=== PATIENT | female | born 1965 | race Caucasian/White ===

== ENCOUNTER 2016-05-26 10:25 | Observation (INO) | payer OTHER ==
--- NOTE | 2016-05-21 09:27 | PREOPHP ---
DATE OF ADMISSION: 05/26/2016 Patient to have surgery with Dr. Javi Lares, 05/26/2016, at [facility]. REQUESTING PHYSICIAN: Dr. Javi Lares for medical evaluation and clearance of a 50-year-old woman a bout to undergo surgery on her left foot. Thank you, Dr. Lares, for allowing us to participate in the care of this patient. HISTORY OF PRESENT ILLNESS: Lindsey Solorio, a 50-year-old woman, problems with her left foot. Inju red it and fractured it at work and it is currently giving her problems with issues of nonunion and arthritic problems. Is currently being admitted for correction of the above problem. PAST SURGICAL HISTORY: She had open cholecystectomy done in the past, right shoulder arthroscopical ly, had a tubal ligation surgery and had a variety of different cosmetic surgeries particularly in h er abdomen. She fractured her left foot, as mentioned above. Her tubal ligation was done laparosco pic. HOSPITALIZATIONS: She has had no medical hospitalizations. OBSTETRIC HISTORY: Has had pregnancies and vaginal deliveries. Other than that, she has been relatively well, having a work injury in terms of the fractured left f oot. MEDICATIONS: None. ALLERGIES: NONE. GENERAL HEALTH: Good. SOCIAL HISTORY: The patient is , has 3 children and 1 grandchild. She does not smoke or dri nk alcoholic beverages. Does drink coffee. Works as a [employer] and usually has no difficulty sleeping a t night. FAMILY HISTORY: Both parents are alive. Father is 78. Mother is 73. Father has some mild hyperte nsion. Two sisters are in good health. There is a family history of hypertension and stroke; no di abetes or cancer. REVIEW OF SYSTEMS HEENT: Does get periodic migraine headaches. CARDIORESPIRATORY: Denies any chest pain or shortness of breath. GASTROINTESTINAL: No melena or hematemesis. GENITOURINARY: No urgency, frequency. GYNECOLOGIC: Still has regular menses, is up to date with her doctor. MUSCULOSKELETAL: Positive f or left foot pain. NEUROPSYCHIATRIC: Unremarkable. GENERAL HEALTH: As above. PHYSICAL EXAMINATION VITAL SIGNS: The patient's blood pressure was 109/78, pulse was 76 and regular, respirations were 1 8, temperature 98.4, weight 156 pounds, height 63 inches. GENERAL: The patient was noted to be a well-developed, well-nourished female, alert and cooperative , in no apparent acute distress, oriented to time, place and person. HEAD, EARS, EYES, NOSE AND THROAT: Head was atraumatic. The eyes, pupils were equal, reactive to l ight and accommodation. Fundi were benign. Tympanic membranes were unremarkable. Nose was negativ e. Mouth was unremarkable. Fair oral hygiene was present. NECK: Supple, without any rigidity. Trachea was midline. Thyroid was unremarkable. Neck veins we re flat. Carotid pulses were equal. BACK: Unremarkable. CHEST: Symmetrical. BREASTS AND AXILLARY: Did not reveal any masses. LUNGS: Clear to percussion and auscultation. HEART: PMI is 5th intercostal space at the midclavicular line. A regular sinus rhythm was noted. No significant murmurs, rubs, or gallops being elicited. ABDOMEN: Soft, good bowel sounds were noted. No significant organomegaly, masses, or tenderness be ing noted. Scar from prior surgery was noted. GENITALIA: Normal female external genitalia. PELVIRECTAL: Per business consult, up to date. EXTREMITIES: Did not reveal any clubbing, edema or cyanosis. Peripheral pulses were physiologic. SKIN: Moist and warm without any eruptions. No gross lymphadenopathy was noted. NEUROLOGIC: Grossly intact. IMPRESSION 1. Pain, left foot, secondary to subluxation of tarsometatarsal joint in the left foot. 2. Stable health. DATABASE: Review of laboratory and other data revealed the following: The patient's chemistry pane l revealed normal electrolytes, glucose, BUN, creatinine, a uric acid was normal, calcium was a bit the lower side. Liver function tests, magnesium and test were normal. CBC, UA, PT and PT T were normal. The patient's EKG revealed some nonspecific ST-T wave changes; no acute changes bein g noted, and the patient's chest x-ray was within normal limits. DISCUSSION: Dr. Lares, I see no contraindication in this patient undergoing current proposed surge ry under the desired form of anesthesia, and I feel she is a suitable candidate at this particular p oint in time. Should any medical problems arise during her stay at [facility], I will be m ore than happy to follow her up with you. Thank you again, Dr. Lares, for allowing us to participate in the care of this patient. Dictated By: DAMARIS TURCIOS MD SS/NTS Conf#: [id number] DID#: [id number] CC: JAVI LARES MD;*EndCC*
[~2016-05-26] VITALS: Ht 157.5 cm; Wt 70.3 kg
[2016-05-26] VITALS (20 sets, daily range): BP systolic 109–140; BP diastolic 61–78; PULSE 72–104; RESP 13–36; Ht 157.5 cm; Wt 70.3 kg
[~2016-05-26 10:25] MED LIST: FENTAnyl 50 MCG/ML VIAL ONE; GLYCOPYRROLATE 0.4 MG INJ ONE; KETOROLAC 30 MG INJ ONE; LIDOCAINE 2% (SDV) 5 ML INJ ONE; LIDOCAINE 2%/EPI 30 ML INJ ONE; MIDAZOLAM 1 MG/ML 2 ML INJ ONE; NEOSTIGMINE 3 MG/3 ML SYRINGE ONE; PROPOFOL 20 ML ONE; ROCURONIUM 50 MG INJ ONE; ROPIVACAINE 0.5 % 30 ML VIAL ONE
[2016-05-26] MEDS ORDERED: ROPIVACAINE 0.5 % 30 ML VIAL ONE (12:05)
[2016-05-26] MEDS ORDERED: POVIDONE IODINE 10% 28.4 GM OINT ONE (12:05)
[2016-05-26] MEDS ORDERED: POLYMYXIN/BACITRACIN 1L IRRIG ONE (12:06)
[2016-05-26] MEDS ORDERED: ONDANSETRON 4 MG INJ ONE ×2 (12:44→18:23)
[2016-05-26] MEDS ORDERED: DEXAMETHASONE 4 MG/ML 1 ML INJ ONE (12:44)
--- NOTE | 2016-05-26 12:46 | HPN ---
Date/Time of Note Date/Time of Note DATE: 05/26/16 TIME: 12:45 Interval H&P Admission Note Pt. seen H&P reviewed: No system changes CHRIS LARES MD May 26, 2016 12:46
[2016-05-26] MEDS ORDERED: HEPARIN 1000 UNITS/ML 10 ML INJ ONE (13:22)
[2016-05-26] MEDS ORDERED: THROMBIN 5000 UNIT VIAL ONE (14:42)
[2016-05-26] MEDS ORDERED: CA CHLORIDE 10% 10 ML SYRINGE ONE (14:42)
[2016-05-26] MEDS ORDERED: LIDOCAINE 4% CR ONE (16:07)
[2016-05-26] MEDS ORDERED: LABETALOL HCL 20MG INJ ONE (16:17)
[2016-05-26] MEDS ORDERED: CEFAZOLIN 1 GM INJ ONE (17:06)
[2016-05-26] MEDS ORDERED: NEOMYC/POLYMYX/BACIT 30 GM OINT ONE (17:29)
--- NOTE | 2016-05-26 18:23 | RADRPT ---
PROCEDURE: Intraoperative imaging of the left foot with fluoroscopy. CLINICAL INDICATION: Left foot pain. Intraoperative. TECHNIQUE: 18 images of the left foot were obtained in the operating room with an image intensifie r. No radiologist was in attendance. 0.1 minutes of fluoroscopy time was used. COMPARISON: No prior study is available for comparison. FINDINGS: Images demonstrate surgical instruments overlying the left foot and arthrodesis of the first and sec ond tarsometatarsal joints with plates and screws. IMPRESSION: 1. Intraoperative imaging of the left foot. RPTAT: QQ .Alvaro Rodríguez MD, Date Time Electronically viewed and signed by .Alvaro Rodríguez MD, on 05/26/2016 18:23 .R/
--- NOTE | 2016-05-26 18:27 | OPR ---
Date/Time of Note Date/Time of Note DATE: 05/26/16 TIME: 18:21 Operative Report Procedure Date: May 26, 2016 Preoperative Diagnosis Left foot status post Lisfranc injury now with first second third and fourth tarsometatarsal joint osteoarthritis Postoperative Diagnosis 1. Left foot status post Lisfranc injury tarsometatarsal joint dislocation with first, second, third and fourth tarsometatarsal joint osteoarthritis Operation Performed Left foot first, second and third tarsometatarsal joint arthrodesis with iliac crest bone marrow autograft harvest mixed with bone marrow aspirate concentrate and allograft Surgeon: CHRIS LARES MD pediatric physician assistant: JOSE FORD Anesthesia: general, other (Regional block anesthesia) Anesthesiologist: RUSSELL BAIRD MD Tourniquet Time: 125 minutes at 250 mmHg Estimated Blood Loss: minimal Complications: None Pt Condition Post Procedure: stable Disposition: PACU CHRIS LARES MD May 26, 2016 18:26
[2016-05-26] MEDS ORDERED: MEPERIDINE 25 MG INJ IV PRN (18:30)
[2016-05-26] MEDS ORDERED: ATROPINE 1 MG/10 ML SYRINGE IV PRN (18:30)
[2016-05-26] MEDS ORDERED: hydrALAzine 20 MG INJ IV PRN (18:30)
[2016-05-26] MEDS ORDERED: ONDANSETRON 4 MG INJ IV PRN ×2 (18:30)
[2016-05-26] MEDS ORDERED: morphine 10 MG INJ IV PRN (18:30)
[2016-05-26] MEDS ORDERED: LABETALOL HCL 20MG INJ IV PRN (18:30)
[2016-05-26] MEDS ORDERED: OXYCODONE/ACETAMINOPHEN (5/325) TAB PO PRN ×3 (18:30)
[2016-05-26] MEDS ORDERED: HYDROmorphONE (0.2 MG/ML) 10ML SYG IV PRN ×3 (18:30)
[2016-05-26] MEDS ORDERED: CEFAZOLIN 1 GM INJ IV SCH (18:30)
[2016-05-26] MEDS ORDERED: morphine (1 MG/ML) 10ML SYRINGE IV PRN ×3 (18:30)
[2016-05-26] MEDS ORDERED: EPHEDrine SULFATE 50 MG/5 ML SYG IV PRN (18:30)
[2016-05-26] MEDS ORDERED: DIPHENHYDRAMINE 50 MG INJ IV PRN (18:30)
[2016-05-26] MEDS ORDERED: FENTAnyl 50 MCG/ML VIAL IV PRN ×2 (18:30)
[2016-05-26] MEDS ORDERED: MIDAZOLAM 1 MG/ML 2 ML INJ IV PRN (18:30)
[2016-05-26] MEDS ORDERED: DIPHENHYDRAMINE 25 MG CAP PO PRN ×2 (18:30→19:00)
[2016-05-26] MEDS ORDERED: morphine 1 MG/ML 30 ML (PCA) IV SCH (18:30)
[2016-05-26] MEDS: OXYCODONE/ACETAMINOPHEN (5/325) TAB PO PRN (20:23)
[2016-05-27] MEDS: CEFAZOLIN 1 GM/50 ML (PMX) 50 ML IVPB SCH ×3 (01:49→17:22)
[2016-05-27] MEDS ORDERED: DIPHENHYDRAMINE 25 MG CAP PO PRN (02:00)
[2016-05-27 06:44] VITALS: BP 112/77; PULSE 67; RESP 18
[2016-05-27 08:53] VITALS: BP 114/65; RESP 18
--- NOTE | 2016-05-27 11:16 | CONS ---
DATE OF ADMISSION: 05/26/2016 DATE OF CONSULTATION: 05/27/2016 HISTORY OF PRESENT ILLNESS: The patient had surgery on her left foot. It is bandaged and casted an d elevated. Apparently, a Villarreal catheter had to be reinserted because of the patient's inability to urinate. The patient has had no prior history of significant urinary tract issues. VITAL SIGNS: The patient's vital signs revealed the following: Blood pressure was 114/85, pulse wa s 67, respirations 18, temperature 98.7, O2 saturation 96% on room air. HEENT: Unremarkable. LUNGS: Clear. HEART: Reveals a regular rhythm. Villarreal in place. Left lower extremity elevated. IMPRESSION 1. Status post left foot and ankle surgery. 2. Urinary retention, etiology unknown. 3. Stable health. DISCUSSION: At this point, no lab is pending. Should the catheter be difficult remove, suggest a u rine culture and urecholine or other appropriate measures for bladder emptying. Otherwise, the robbie ent was quite stable and management by Dr. Javi Penaloza MD Thank you again, Dr. Penaloza, for allowing us to participate in the care of this patient. Dictated By: DAMARIS URIAS/ERIKA Conf#: [id number] DID#: [id number]
[2016-05-27] MEDS: OXYCODONE/ACETAMINOPHEN (5/325) TAB PO PRN ×2 (13:04→17:21)
[2016-05-27] MEDS ORDERED: INFLUENZA VIRUS VACCINE 0.5 ML SYG IM* ONE (16:00)
[2016-05-27] MEDS ORDERED: RIVAROXABAN 10 MG TABLET PO SCH (17:55)
--- NOTE | 2016-05-27 18:16 | PN ---
Date/Time of Note Date/Time of Note DATE: 05/27/16 TIME: 18:16 Assessment/Plan Lines/Catheters IV Catheter Type (from Nrsg): Peripheral IV Villarreal in Place (from Nrsg): No Assessment/Plan Assessment/Plan Postoperative day #1 status post left first second, third tarsometatarsal joint arthrodesis with iliac crest autograft and allograft as well as bone marrow aspirate concentrate -Nonweightbearing to the left lower extremity -P.o. pain control -Xarelto and SCDs for DVT prophylaxis -Discharge home today Javi Lares MD Subjective 24 Hr Interval Summary Pain is well controlled and patient able to urinate freely. She denies any fevers chills nausea or vomiting Constitutional: ambulates, flatus, improved, no complaints, urine output Feeding: advancing diet Pain Control: well controlled Exam/Review of Systems Vital Signs Vitals Vital Signs Date Time Temp Pulse Resp B/P Pulse Ox O2 Delivery O2 Flow Rate FiO2 05/27/16 08:53 98.1 80 18 114/65 99 05/27/16 06:44 Room Air Intake and Output 05/26/16 05/26/16 05/27/16 15:00 23:00 07:00 Intake Total 600 ml Output Total 100 ml 800 ml Balance -100 ml -200 ml Exam Constitutional: alert, oriented, well developed Musculoskeletal: other (Left lower extremity-splint intact. Toes wiggle, sensation intact light touch to the medial, lateral, dorsal, plantar, first dorsal webspace distribution. Capillary refill brisk and toes are warm and well perfused) JAVI LARES MD May 27, 2016 18:16
--- NOTE | 2016-05-27 18:16 | DS ---
Date/Time of Note Date/Time of Note DATE: 05/27/16 TIME: 18:16 Discharge Summary Admission/Discharge Info Admit Date/Time May 26, 2016 at 18:29 Discharge Date/Time 05/27/16 Final Diagnosis Left midfoot OA Patient Condition: Good Procedures Left TMTJ Arthrodesis Hospital Course Patient was admitted post op for pain control and urinary retention. She was straight cath'd twice and pain is now better controlled. She is NVI to the operative extremity Home Meds No Active Prescriptions or Reported Meds Follow-up Plan with me in [facility] in 1 week CHRIS LARES MD May 27, 2016 18:16
--- NOTE | 2016-05-27 18:18 | PDOCDIS ---
Discharge Instructions DIAGNOSIS Discharge Diagnosis: left midfoot arthritis CONDITION Patient Condition: Good HOME CARE INSTRUCTIONS: Diet Instructions: Regular ACTIVITY: Activity Restrictions: Do not Drive Keep Limb Elevated No Weight Bearing SCHOOL/WORK RELEASE May return to School/Work with: With Restrictions CHRIS LARES MD May 27, 2016 18:18
--- NOTE | 2016-05-31 14:03 | OPR ---
DATE OF OPERATION: 05/26/2016 SURGEON: Javi Penaloza MD OLIVE GRADER: Summer TUCKER PREOPERATIVE DIAGNOSES: 1. Left foot osteoarthritis of the first, second, third and fourth tarsometatarsal joint secondary to a previous Lisfranc injury. 2. Left foot osteoarthritis first, second, third and fourth tarsometatarsal joint secondary to a previous Lisfranc tarsometatarsal joint injury. POSTOPERATIVE DIAGNOSES: 1. Left foot osteoarthritis of the first, second, third and fourth tarsometatarsal joint secondary to a previous Lisfranc injury. 2. Left foot osteoarthritis first, second, third and fourth tarsometatarsal joint secondary to a previous Lisfranc tarsometatarsal joint injury and fracture of the base of the fourth metatarsal OPERATION PERFORMED: Left foot first, second and third tarsometatarsal joint arthrodesis with iliac crest bone autograft harvest, mixed with bone marrow aspirate concentrate and allograft. ANESTHESIA: General with regional block. ANESTHESIOLOGIST: Bienvenido Stoll MD TOURNIQUET TIME: 125 minutes at 250 mmHg ESTIMATED BLOOD LOSS: Minimal. COMPLICATIONS: None. INDICATIONS: The patient is a female who sustained an injury Lisfranc first and second tarsometatarsal joint dislocation, Lisfranc injury as well as fourth and third metatarsal joint injuries. X-ray and CT scan showed malalignment of the first metatarsal on the cuneiform as well as posttraumatic osteoarthritis of the second third and fourth tarsometatarsal joint. Patient continued to have extensive pain at these joints and was indicated for midfoot arthrodesis at this point. Procedure: Patient was met in the preoperative holding area and her operative extremity was both marked and confirmed with both patient and consent. Patient was then brought back to the operative theater placed supine on the operative table and given regional block anesthesia and antibiotics. Patient was then prepped and draped in the normal sterile fashion and a timeout was taken. All parties in the room agreed is a correct patient, extremity and correct procedure. Initially attention was turned to the left iliac crest where a small incision was made just proximal to the ASIS. Iliac crest bone was harvested using an [employer] bone harvesting reamer. Bone marrow aspirate concentrate was also removed from this area at this time and sent off for centrifuge. The wound was irrigated thoroughly and closed with 3-0 Monocryl followed by 4-0 Monocryl and Steri-Strips. Attention was then turned to the left lower extremity. Tourniquet was brought up to 250 mmHg. Incision was made over the first and second metatarsal and incision was brought down deep to the extensor hallucis brevis and the neurovascular bundle was identified and protected and retracted. The first tarsometatarsal joint was exposed and prepared removing all cartilage on both sides of the joint and the subchondral bone was curetted and penetrated with a drill to promote fusion scar tissue was removed between the base of the second metatarsal and first cuneiform to allow for reduction of the second metatarsal base. Once the joint was adequately debrided the first metatarsal base was then pinned to the first cuneiform while providing provisional fixation. The deformity was reduced with the ankle in dorsiflexion and the toes in dorsiflexion to promote proper alignment. The second metatarsal was then debrided in the similar fashion and the subchondral bone on both the cuneiform and the metatarsal were adequately debrided and using a drill to promote subchondral penetration. A another guidepin was then placed all fixation of the middle column with again the ankles and toes in dorsiflexion. the first plate was then sized and then attention was then turned to the Lisfranc screw placement. A Lisfranc screw was placed from the first cuneiform to the base of the second metatarsal in order to stabilize the base of the second metatarsal. Then turned to placement of the dorsal compression plate and the first and second tarsometatarsal joint dorsal compression plates were then applied after iliac crest bone autograft and bone marrow aspirate concentrate had been mixed with AlloMatrix and augment. The allograft and autograft mixture was then placed into the first and second tarsometatarsal joint and the dorsal compression plates were then applied. The plates had been precontoured to prevent dorsiflexion. And locking screws and compression screws were placed into the plate. Fluoroscopic guidance confirmed on the AP oblique and lateral view that the plates were placed in the excellent position and the joints were well aligned. Incision was then made over the third and fourth tarsometatarsal joint and brought down to the third TMT joint. The joint was then debrided and prepared in a similar fashion as previously mentioned with subchondral bone be penetrated in the cartilage removed. And then using a [employer] staple the joints were then held in position and compressed in the typical fashion with the autograft and allograft mixture placed into the third TMT joint prior to staple compression. The fourth TMT joint had a sense of scar tissue debrided around the joint as well in order to achieve better pain control after surgery and remove any sort of pain generators. All wounds were irrigated thoroughly and closed in layers with 3-0 Monocryl followed by 4-0 nylon in vertical mattress fashion. All wounds were dressed with Xeroform Betadine ointment 4 x 4's several ABDs and placed in a well-padded short leg cast. All sponge needle counts were correct and the patient was brought to the PACU in stable condition. Dictated By: JAVI LAIRD/NTS Conf#: [id number] DID#: [id number] MTDD
== END 2016-05-27 21:00 | disposition home or self-care (01) ==
LOC: SDS 10:25 → MS1 18:29
PROVIDERS: ADMIT Orthopaedic Surgery; ATTEND Orthopaedic Surgery
DX: M19.072 Primary osteoarthritis, left ankle and foot (principal); Z90.49 Acquired absence of other specified parts of digestive tract; Z98.51 Tubal ligation status; Z82.49 Family history of ischemic heart disease and other diseases of the circulatory system; R33.9 Retention of urine, unspecified
CPT/HCPCS: 20900; 28730; 73630; 82306; 84703; 96365; 96366; 96375; 97163; C1713; G0378; J0690; J1100; J1644; J1885; J2250; J2405; J2710; J2795; J3010; 90686